=== PATIENT | female | born 1945 | race Two or more races ===

== ENCOUNTER 2017-10-09 10:54 | Outpatient (CLI) | payer OTHER ==
[~2017-10-09 10:54] MED LIST: COZAAR50 MG; PROTONIX20 MG
== END 2017-10-09 11:03 | disposition home or self-care (01) ==
LOC: NUCLEAR 10:54
DX: M81.0 Age-related osteoporosis without current pathological fracture (principal)

== ENCOUNTER 2017-10-25 13:48 | Outpatient (CLI) | payer OTHER | END 2017-10-25 14:00 | disposition home or self-care (01) | LOC: MRI 13:48 | DX: M17.0 Bilateral primary osteoarthritis of knee (principal); M17.11 Unilateral primary osteoarthritis, right knee; M23.303 Other meniscus derangements, unspecified medial meniscus, right knee | CPT/HCPCS: 73721 ==

== ENCOUNTER 2017-10-25 13:51 | Outpatient (CLI) | payer OTHER | END 2017-10-25 14:01 | disposition home or self-care (01) | LOC: RAD 13:51 | DX: M17.0 Bilateral primary osteoarthritis of knee (principal); M17.12 Unilateral primary osteoarthritis, left knee; M19.071 Primary osteoarthritis, right ankle and foot; M19.072 Primary osteoarthritis, left ankle and foot ==

== ENCOUNTER 2018-01-03 12:08 | Outpatient (CLI) | payer OTHER | END 2018-01-03 12:14 | disposition home or self-care (01) | LOC: RAD 12:08 | DX: M16.0 Bilateral primary osteoarthritis of hip (principal); M51.27 Other intervertebral disc displacement, lumbosacral region ==

== ENCOUNTER 2018-06-06 10:21 | Outpatient (CLI) | payer OTHER | END 2018-06-06 11:12 | disposition home or self-care (01) | LOC: MRI 10:21 | DX: M48.07 Spinal stenosis, lumbosacral region (principal) | CPT/HCPCS: 72141; 72146; 72148 ==

== ENCOUNTER 2018-12-12 12:22 | Emergency (ER) | payer OTHER ==
[~2018-12-12] VITALS: Ht 157.5 cm; Wt 45.4 kg
[2018-12-12] MEDS ORDERED: APETIGEN-PLUS1 EACH PO (19:48)
[2018-12-12] MEDS ORDERED: INTESTINEX680 M1 PO (19:48)
[2018-12-12] MEDS ORDERED: VITAMIN B-121000 MC4 PO (19:48)
[2018-12-12] MEDS ORDERED: PEPCID AC20 MG PO (19:48)
== END 2018-12-12 20:00 | disposition home or self-care (01) ==
LOC: ER 12:22 → CPU-OBS 12:38 → ER 12:38
DX: R07.89 Other chest pain (principal)

== ENCOUNTER 2019-05-13 15:38 | Outpatient (CLI) | payer OTHER | END 2019-05-13 15:44 | disposition home or self-care (01) | LOC: NUCLEAR 15:38 | DX: I87.2 Venous insufficiency (chronic) (peripheral) (principal) ==

== ENCOUNTER → 2019-05-13 | Outpatient (CLI) | payer OTHER ==
[~2019-05-13] MED LIST changes: +APETIGEN-PLUS1 EACH PO; +INTESTINEX680 M1 PO; +PEPCID AC20 MG PO; +VITAMIN B-121000 MC4 PO
== END | disposition home or self-care (01) ==
LOC: TOM 11:45
DX: M25.572 Pain in left ankle and joints of left foot (principal)

== ENCOUNTER 2019-05-14 09:14 | Outpatient (CLI) | payer OTHER | END 2019-05-14 10:00 | disposition home or self-care (01) | LOC: NUCLEAR 09:14 | DX: I73.9 Peripheral vascular disease, unspecified (principal) ==

== ENCOUNTER 2021-12-17 11:18 | Emergency (ER) | payer OTHER ==
[~2021-12-17] VITALS: Ht 157.5 cm; Wt 54.0 kg
[2021-12-17] MEDS ORDERED: INTESTINEX680 M1 PO (16:59)
[2021-12-17] MEDS ORDERED: METRONIDAZOLE500 MG PO (16:59)
[2021-12-17] MEDS ORDERED: CIPRO500 MG PO (16:59)
== END 2021-12-17 20:12 | disposition home or self-care (01) ==
LOC: ER 11:18
DX: K52.89 Other specified noninfective gastroenteritis and colitis (principal); I10 Essential (primary) hypertension

== ENCOUNTER → 2022-01-30 | Outpatient (CLI) | payer OTHER ==
[~2022-01-30] MED LIST changes: +CIPRO500 MG PO; +METRONIDAZOLE500 MG PO
== END | disposition home or self-care (01) ==
LOC: LAB 16:02
PROVIDERS: ATTEND Internal Medicine Gastroenterology
DX: R19.7 Diarrhea, unspecified (principal); K52.89 Other specified noninfective gastroenteritis and colitis

== ENCOUNTER 2022-02-03 13:06 | Emergency (ER) | payer OTHER ==
[~2022-02-03] VITALS: Ht 157.5 cm; Wt 49.9 kg
[2022-02-03] MEDS ORDERED: XANAX1 MG PO (13:37)
== END 2022-02-03 15:57 | disposition home or self-care (01) ==
LOC: ER 13:06
DX: K52.9 Noninfective gastroenteritis and colitis, unspecified (principal); E86.0 Dehydration; R10.32 Left lower quadrant pain; I10 Essential (primary) hypertension

== ENCOUNTER 2022-08-27 14:07 | Emergency (ER) | payer OTHER ==
[~2022-08-27] VITALS: Ht 157.5 cm; Wt 49.9 kg
[~2022-08-27 14:07] MED LIST changes: +XANAX1 MG PO
== END 2022-08-27 18:15 | disposition home or self-care (01) ==
LOC: ER 14:07
DX: S80.01XA Contusion of right knee, initial encounter (principal); W18.39XA Other fall on same level, initial encounter; Y93.9 Activity, unspecified; Y92.9 Unspecified place or not applicable; Y99.9 Unspecified external cause status

== ENCOUNTER 2023-03-28 14:55 | Outpatient (CLI) | payer OTHER | END 2023-03-28 14:57 | disposition home or self-care (01) | LOC: LAB 14:55 | PROVIDERS: ATTEND Internal Medicine Hematology & Oncology | DX: D50.8 Other iron deficiency anemias (principal); I10 Essential (primary) hypertension; R74.02 Elevation of levels of lactic acid dehydrogenase [LDH]; K76.89 Other specified diseases of liver; E55.9 Vitamin D deficiency, unspecified; D63.1 Anemia in chronic kidney disease; D51.1 Vitamin B12 deficiency anemia due to selective vitamin B12 malabsorption with proteinuria; D51.0 Vitamin B12 deficiency anemia due to intrinsic factor deficiency; M81.0 Age-related osteoporosis without current pathological fracture; F41.3 Other mixed anxiety disorders; F33.9 Major depressive disorder, recurrent, unspecified; K52.3 Indeterminate colitis ==

== ENCOUNTER 2023-06-19 08:08 | Outpatient (CLI) | payer OTHER ==
[2023-06-19 09:00] LABS: HEMOGLOBIN 12.7 g/dL (12.0-15.00); MEAN CELL VOLUME 99.1 fL (80.00-100.00); MEAN CORPUSCULAR HEMOGLOBIN 33.9 pg (27.00-32.0); MEAN CORPUSCULAR HGB CONC 34.2 g/dl (32.0-36.0); PLATELET COUNT 280 K/uL (150-450); RED BLOOD COUNT 3.73 M/uL (4.00-6.00); RED CELL DISTRIBUTION WIDTH 13.3 % (11.5-14.5)
[2023-06-19 09:03] LABS: URINE APPEARANCE Clear; URINE BILIRRUBIN Negative (NEGATIVE); URINE BLOOD Negative; URINE COLOR Yellow; URINE GLUCOSE Negative (NEGATIVE); URINE LEUKOCYTE Negative; URINE NITRATE Negative; URINE PROTEIN Negative (NEGATIVE); URINE UROBILINOGEN 0.2 E.U./dl
[2023-06-19 09:07] LABS: URINE EPITHELIAL CELLS 19.7 uL (0.0-38.8); URINE WBC 18.2 uL (0.0-23.2)
[2023-06-19 09:13] LABS: URINE RBC 1.7 uL (0.0-20.8)
[2023-06-19 09:49] LABS: ALBUMIN 3.7 gm/dL (3.4-5.0); BILIRUBIN TOTAL 0.41 mg/dL (0.3-1.2); CALCIUM 9.5 mg/dL (8.5-10.1); CHOL HDL RATIO 4.3 (0-5.0); CREATININE SERUM 1.27 mg/dL (0.55-1.02); GFR 40.7; GLOBULINA 3.7 G/DL (2.4-3.5); POTASSIUM 4.96 mEq/L (3.5-5.1); TOTAL PROTEIN 7.4 gm/dL (6.4-8.2); TSH 2.35 uIU/mL (0.358-3.74)
[2023-06-19 09:55] LABS: URINE PROT QUANT 24HR 74.5 MG/DL
[2023-06-19 10:18] LABS: URINE PROT QUANT 24 HR 409.75 MG/24HR (42-225)
[2023-06-19 10:19] LABS: C-REACTIVE PROTEIN 0.7 MG/DL (0.00-0.29)
[2023-06-19 10:20] LABS: CREATINE CLEARANCE 27.1 ML/MIN (97-137); CREATININE SERUM 1.27 mg/dL (0.6-1.0)
== END 2023-06-19 08:11 | disposition home or self-care (01) ==
LOC: LAB 08:08
PROVIDERS: ATTEND Internal Medicine Hematology & Oncology
DX: D50.8 Other iron deficiency anemias (principal); I10 Essential (primary) hypertension; R74.02 Elevation of levels of lactic acid dehydrogenase [LDH]; K76.89 Other specified diseases of liver; D63.1 Anemia in chronic kidney disease; M81.0 Age-related osteoporosis without current pathological fracture; D51.1 Vitamin B12 deficiency anemia due to selective vitamin B12 malabsorption with proteinuria; F41.3 Other mixed anxiety disorders; F33.9 Major depressive disorder, recurrent, unspecified; K52.3 Indeterminate colitis; N39.0 Urinary tract infection, site not specified; E78.2 Mixed hyperlipidemia; K57.30 Diverticulosis of large intestine without perforation or abscess without bleeding

== ENCOUNTER 2023-08-21 12:59 | Outpatient (CLI) | payer OTHER | END 2023-08-21 13:08 | disposition home or self-care (01) | LOC: SONOGRAMA 12:59 | PROVIDERS: ATTEND Internal Medicine Rheumatology | DX: M65.811 Other synovitis and tenosynovitis, right shoulder (principal) ==

== ENCOUNTER 2023-09-05 13:29 | Emergency (ER) | payer OTHER ==
[~2023-09-05] VITALS: Ht 160 cm; Wt 53.5 kg
[2023-09-05] MEDS ORDERED: RESTORIL30 MG (13:41)
[2023-09-05 14:47] LABS: HEMATOCRIT 36.5 % (36.0-45.00); HEMOGLOBIN 12.5 g/dL (12.0-15.00); MEAN CELL VOLUME 97.5 fL (80.00-100.00); MEAN CORPUSCULAR HEMOGLOBIN 33.4 pg (27.00-32.0); MEAN CORPUSCULAR HGB CONC 34.3 g/dl (32.0-36.0); PLATELET COUNT 227 K/uL (150-450); RED BLOOD COUNT 3.75 M/uL (4.00-6.00); RED CELL DISTRIBUTION WIDTH 13.4 % (11.5-14.5)
[2023-09-05 15:27] LABS: ALBUMIN 3.2 gm/dL (3.4-5.0); BILIRUBIN TOTAL 0.45 mg/dL (0.3-1.2); CALCIUM 9.2 mg/dL (8.5-10.1); CREATININE SERUM 0.88 mg/dL (0.55-1.02); GFR 62.14; GLOBULINA 4.1 G/DL (2.4-3.5); POTASSIUM 4.03 mEq/L (3.5-5.1); TOTAL PROTEIN 7.3 gm/dL (6.4-8.2)
== END 2023-09-05 17:26 | disposition home or self-care (01) ==
LOC: ER 13:29
PROVIDERS: General Practice
DX: S09.8XXA Other specified injuries of head, initial encounter (principal); W18.39XA Other fall on same level, initial encounter; Y93.89 Activity, other specified; Y92.013 Bedroom of single-family (private) house as the place of occurrence of the external cause; S79.812A Other specified injuries of left hip, initial encounter; I10 Essential (primary) hypertension
CPT/HCPCS: 36415; 70450; 72125; 73501; 73521; 96372; 99284; J1885

== ENCOUNTER 2023-09-11 13:00 | Outpatient (CLI) | payer OTHER ==
[~2023-09-11 13:00] MED LIST changes: +RESTORIL30 MG
[2023-09-12] MEDS ORDERED: PRISTIQ ER50 MG PO (12:49)
[2023-09-12] MEDS ORDERED: UCERIS9 MG PO (12:50)
[2023-09-12] MEDS ORDERED: PEPCID AC20 MG PO (12:50)
== END 2023-09-11 13:08 | disposition home or self-care (01) ==
LOC: LAB 13:00
PROVIDERS: ATTEND Internal Medicine Gastroenterology
DX: R19.7 Diarrhea, unspecified (principal); K52.832 Lymphocytic colitis

== ENCOUNTER 2023-09-12 12:09 | Inpatient (IN) | payer OTHER ==
[~2023-09-12] VITALS: Ht 152.4 cm; Wt 53.5 kg
[2023-09-12] MEDS ORDERED: PRISTIQ ER50 MG PO (12:49)
[2023-09-12] MEDS ORDERED: PEPCID AC20 MG PO (12:50)
[2023-09-12] MEDS ORDERED: UCERIS9 MG PO (12:50)
[2023-09-12] MEDS ORDERED: LACTOBACILLUS ACIDOPHILUS 1 CAP CAP PO ONE (15:45)
[2023-09-12] MEDS ORDERED: METRONIDAZOLE/SODIUM CHLORIDE 500 MG/100 ML PIGGYBACK IV ONE (15:45)
[2023-09-12] MEDS ORDERED: 0.9 % SODIUM CHLORIDE 500 ML IV ONE (15:45)
[2023-09-12] MEDS ORDERED: FAMOTIDINE/PF 20 MG/2 ML VIAL IV ONE (15:45)
[2023-09-12] MEDS ORDERED: ONDANSETRON HCL 2 MG/ML VIAL IV ONE (15:45)
[2023-09-12 16:38] LABS: HEMATOCRIT 34.9 % (36.0-45.00); HEMOGLOBIN 11.8 g/dL (12.0-15.00); MEAN CELL VOLUME 97.1 fL (80.00-100.00); MEAN CORPUSCULAR HEMOGLOBIN 32.9 pg (27.00-32.0); MEAN CORPUSCULAR HGB CONC 33.9 g/dl (32.0-36.0); PLATELET COUNT 285 K/uL (150-450); RED BLOOD COUNT 3.59 M/uL (4.00-6.00); RED CELL DISTRIBUTION WIDTH 13.5 % (11.5-14.5)
[2023-09-12 17:22] LABS: CALCIUM 8.8 mg/dL (8.5-10.1); CREATININE SERUM 0.94 mg/dL (0.55-1.02); GFR 57.59; POTASSIUM 3.13 mEq/L (3.5-5.1)
[2023-09-12] MEDS ORDERED: 0.9 % SODIUM CHLORIDE 1,000 ML IV SCH (20:45)
[2023-09-12] MEDS ORDERED: ACETAMINOPHEN 500 MG GEL..CAP PO PRN (20:45)
[2023-09-12] MEDS ORDERED: ONDANSETRON HCL 4 MG in 0.9 % SODIUM CHLORIDE 50 ML IV PRN (20:45)
[2023-09-12] MEDS ORDERED: TEMAZEPAM 15 MG CAPSULE PO SCH (21:00)
[2023-09-12 23:42] LABS: PH,URINE 5.5 (5.0-8.0); URINE APPEARANCE Clear; URINE BILIRRUBIN Negative (NEGATIVE); URINE COLOR Yellow; URINE GLUCOSE Negative (NEGATIVE); URINE LEUKOCYTE Small; URINE NITRATE Positive; URINE PROTEIN 30 (NEGATIVE); URINE UROBILINOGEN 0.2 E.U./dl
[2023-09-12 23:43] LABS: URINE BACTERIA 8182.3 uL (0.0-1933); URINE EPITHELIAL CELLS 4.9 uL (0.0-38.8); URINE RBC 10.2 uL (0.0-20.8); URINE WBC 665.4 uL (0.0-23.2)
[2023-09-12 23:59] LABS: URINE BLOOD TRACES
[2023-09-13] MEDS ORDERED: METRONIDAZOLE/SODIUM CHLORIDE 100 ML IV SCH (01:00)
[2023-09-13] MEDS ORDERED: VANCOMYCIN HCL 125 MG/7.5 ML BLIST.PACK PO SCH (02:00)
[2023-09-13 02:36] LABS: ob POSITIVE (NEGATIVE)
[2023-09-13 03:57] LABS: INR 1.05; PARTIAL THROMBOPLASTIN TIME 20.1 SECONDS (22.0-34.0)
[2023-09-13] MEDS ORDERED: FAMOTIDINE/PF 20 MG in 0.9 % SODIUM CHLORIDE 8 ML IV PUSH SCH (09:00)
[2023-09-13] MEDS ORDERED: LOSARTAN POTASSIUM 100 MG TABLET PO SCH (09:00)
[2023-09-14] MEDS ORDERED: CEFTRIAXONE SODIUM 2,000 MG VIAL IV SCH (17:00)
[2023-09-15 01:39] LABS: URINE APPEARANCE Clear; URINE BILIRRUBIN Negative (NEGATIVE); URINE BLOOD Negative; URINE COLOR Yellow; URINE GLUCOSE Negative (NEGATIVE); URINE LEUKOCYTE Trace; URINE NITRATE Negative; URINE PROTEIN Negative (NEGATIVE); URINE UROBILINOGEN 0.2 E.U./dl
[2023-09-15 01:43] LABS: URINE EPITHELIAL CELLS 5.4 uL (0.0-38.8); URINE WBC 11.9 uL (0.0-23.2)
[2023-09-15 02:40] LABS: URINE BACTERIA 3.7 uL (0.0-1933)
[2023-09-16 07:28] LABS: ALBUMIN 2.5 gm/dL (3.4-5.0); BILIRUBIN TOTAL 0.26 mg/dL (0.3-1.2); CREATININE SERUM 0.82 mg/dL (0.55-1.02); GFR 67.42; MAGNESIUM 1.7 mg/dL (1.8-2.4); PHOSPHOROUS 2.2 mg/dL (2.5-4.9); TOTAL PROTEIN 5.5 gm/dL (6.4-8.2)
[2023-09-16 07:35] LABS: HEMATOCRIT 32.7 % (36.0-45.00); HEMOGLOBIN 11.4 g/dL (12.0-15.00); MEAN CELL VOLUME 95.1 fL (80.00-100.00); MEAN CORPUSCULAR HGB CONC 34.7 g/dl (32.0-36.0); PLATELET COUNT 243 K/uL (150-450); RED BLOOD COUNT 3.44 M/uL (4.00-6.00); RED CELL DISTRIBUTION WIDTH 12.9 % (11.5-14.5)
[2023-09-16 08:07] LABS: C-REACTIVE PROTEIN 1.47 MG/DL (0.00-0.29); POTASSIUM 2.65 mEq/L (3.5-5.1)
[2023-09-17] MEDS ORDERED: POTASSIUM CHLORIDE IN WATER 40 MEQ/100 ML PIGGYBAG IV STA (11:10)
[2023-09-17] MEDS ORDERED: POTASSIUM CHLORIDE 10 MEQ CAPSULE PO STA ×2 (11:20→11:21)
== END 2023-09-17 12:59 | disposition home or self-care (01) | DRG 372 ==
LOC: ER 12:09 → MEDI 20:58 → MEDJ 09-13 18:27
PROVIDERS: General Practice; Internal Medicine Infectious Disease; Nurse Practitioner Family; ADMIT Internal Medicine; ATTEND Internal Medicine
PROC: BW21YZZ Computerized Tomography (CT Scan) of Abdomen and Pelvis using Other Contrast (ICD-10-PCS; principal; 2023-09-12)
DX: A04.72 Enterocolitis due to Clostridium difficile, not specified as recurrent (principal); N39.0 Urinary tract infection, site not specified; I10 Essential (primary) hypertension; K21.9 Gastro-esophageal reflux disease without esophagitis; Z20.822 Contact with and (suspected) exposure to COVID-19